=== PATIENT | female | born 1960 | race Caucasian/White ===

== ENCOUNTER 2020-12-25 16:23 | Emergency (ER) | payer OTHER ==
[~2020-12-25] VITALS: Ht 162.6 cm; Wt 81.7 kg
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
[2020-12-25] MEDS ORDERED: PLAVIX 75 MG TA75 MG PO (16:36)
[2020-12-25] MEDS ORDERED: METFORMIN HCL500 M3 PO (16:36)
[2020-12-25] MEDS ORDERED: LISINOPRIL10 MG PO (16:36)
[2020-12-25] MEDS ORDERED: ASA81BEC PO (16:37)
[2020-12-25] MEDS ORDERED: LIPITOR10 MG PO (16:37)
[2020-12-25] MEDS ORDERED: LEVEMIR100 UNIT/1 SUBQ (16:38)
[2020-12-25 16:49] LABS: ABSOLUTE NEUTROPHILS 8.8 thou/uL (1.4-8.2); BASOPHILS 0.9 % (0.0-2.0); EOSINOPHILS 1.6 % (0.0-3.0); HEMATOCRIT 42.7 % (37.0-47.0); HEMOGLOBIN 14.2 gm/dL (12.0-15.0); MCH 30.7 pg (26.0-34.0); MCHC 33.4 g/dL (28.0-37.0); MONOCYTES 7.6 % (1.0-8.0); PLATELET COUNT 404 thou/uL (150-400); POLYS 70.9 % (36.0-66.0); RBC 4.64 mil/uL (4.20-5.00); RDW 12.5 % (10.5-14.5); WBC 12.4 thou/uL (4.0-11.0)
[2020-12-25 16:55] LABS: CALCIUM 9.5 mg/dL (8.5-10.1); CREATININE 1.1 mg/dL (0.6-1.0); POTASSIUM 3.7 mmol/L (3.5-5.1)
[2020-12-25 17:03] LABS: ALBUMIN 3.3 g/dL (3.4-5.0); TOTAL BILIRUBIN 0.4 mg/dL (0.2-1.0); TOTAL PROTEIN 6.9 g/dL (6.4-8.2)
[2020-12-25 17:12] VITALS: BP 115/78
[2020-12-25 17:20] LABS: URINE BILIRUBIN NEGATIVE (Negative); URINE BLOOD NEGATIVE (Negative); URINE CLARITY CLEAR; URINE COLOR YELLOW; URINE GLUCOSE-RANDOM* NEGATIVE (Negative); URINE KETONES NEGATIVE (Negative); URINE LEUKOCYTES-REFLEX NEGATIVE (Negative); URINE NITRITE-REFLEX NEGATIVE (Negative); URINE PROTEIN (DIPSTICK) NEGATIVE (Negative); URINE SPECIFIC GRAVITY >= 1.030 (1.005-1.035); URINE UROBILINOGEN 0.2 E.U./dl (0.2-1.0)
[2020-12-25] MEDS ORDERED: ZOFRAN ODT4 MG PO (18:01)
== END 2020-12-25 18:03 | disposition home or self-care (01) ==
LOC: ER 16:23
PROVIDERS: Emergency Medicine
DX: R51.9 Headache, unspecified (principal); Z20.822 Contact with and (suspected) exposure to COVID-19; R11.2 Nausea with vomiting, unspecified; F17.210 Nicotine dependence, cigarettes, uncomplicated; Z79.82 Long term (current) use of aspirin; Z79.4 Long term (current) use of insulin; Z79.899 Other long term (current) drug therapy